=== PATIENT | female | born 1965 | race Caucasian/White ===

== ENCOUNTER 2018-10-22 10:39 | Emergency (ER) | payer BC, OTHER ==
[~2018-10-22] VITALS: Ht 167.6 cm; Wt 95.2 kg
[~2018-10-22 10:39] MED LIST: ALPR.25 PO; CARV25 PO; LISI20 PO; METPRE4DP PO; Norco 5-325 Ta1 EACH PO; PROG100 PO; Pantoprazole So40 MG PO; RANI150 PO; RXLORA1 PO; SERT100 PO; Ultram50 MG PO; Voltaren100 GM TOP
[2018-10-22] MEDS ORDERED: CARV25 PO (11:13)
[2018-10-22] MEDS ORDERED: ACID REDUCER 1150 MG PO (11:14)
[2018-10-22] MEDS ORDERED: PANT40 PO (11:14)
[2018-10-22] MEDS ORDERED: PROGESTERONE100 MG PO (11:14)
[2018-10-22] MEDS ORDERED: DICLOFONO2.5 GM TOP (11:15)
[2018-10-22] MEDS ORDERED: CHOL10002 PO (11:15)
[2018-10-22] MEDS ORDERED: LOSA50 PO (11:16)
[2018-10-22] MEDS ORDERED: XIIDRA1 EACH OP (11:16)
[2018-10-22] MEDS ORDERED: Norco 5-325 Ta1 EACH PO (11:54)
[2018-10-22] MEDS ORDERED: METPRE4DP PO (11:54)
== END 2018-10-22 12:39 | disposition home or self-care (01) ==
LOC: ER 10:39
DX: M53.3 Sacrococcygeal disorders, not elsewhere classified (principal); F32.9 Major depressive disorder, single episode, unspecified; Z88.0 Allergy status to penicillin; Z88.8 Allergy status to other drugs, medicaments and biological substances; Z88.5 Allergy status to narcotic agent; Z79.899 Other long term (current) drug therapy
CPT/HCPCS: 96372; 99283-25; J3010

== ENCOUNTER 2018-11-29 07:38 | Emergency (ER) | payer BC, OTHER ==
[~2018-11-29] VITALS: Ht 165.1 cm; Wt 95.2 kg
[~2018-11-29 07:38] MED LIST changes: +ACID REDUCER 1150 MG PO; +CHOL10002 PO; +DICLOFONO2.5 GM TOP; +LOSA50 PO; +PANT40 PO; +PROGESTERONE100 MG PO; +XIIDRA1 EACH OP
[2018-11-29 08:13] LABS: BASOPHILS ABSOLUTE AUTO 0.03 K/mm3 (0.00-0.23); BASOPHILS PERCENT AUTO 0 % (0-2); EOSINOPHILS ABSOLUTE AUTO 0.16 K/mm3 (0.00-0.68); EOSINOPHILS PERCENT AUTO 1 % (0-6); Hematocrit 39.2 % (33.0-51.0); Hemoglobin 12.6 g/dL (11.5-16.0); IMMATURE GRAN ABSOLUTE AUTO 0.04 K/mm3 (0.00-0.10); IMMATURE GRAN PERCENT AUTO 0 % (0-1); LYMPHOCYTES ABSOLUTE AUTO 4.09 K/mm3 (0.84-5.20); LYMPHOCYTES PERCENT AUTO 32 % (21-46); MONOCYTES ABSOLUTE AUTO 0.74 K/mm3 (0.16-1.47); MONOCYTES PERCENT AUTO 6 % (4-13); Mean Corpuscular HGB 28.4 pg (26.0-34.0); Mean Corpuscular HGB Conc 32.1 g/dL (31.5-36.5); Mean Corpuscular Volume 88 fL (80-100); Mean Platelet Volume 10.2 fL (9.1-12.4); NEUTROPHILS ABSOLUTE AUTO 7.92 K/mm3 (1.96-9.15); NEUTROPHILS PERCENT AUTO 61 % (41-73); Platelet Count 331 K/mm3 (150-400); RDW Coefficient Variation 13.6 % (11.7-14.2); RDW Standard Deviation 44.1 fL (35.1-46.3); Red Blood Cell Count 4.44 M/mm3 (3.80-5.20); White Blood Cell Count 12.98 K/mm3 (4.00-11.30)
[2018-11-29 08:39] LABS: Alanine Aminotransfer (ALT/SGP 23 U/L (12-78); Albumin, Blood 3.4 g/dL (3.4-5.0); Albumin/Globulin Ratio 0.9 (0.8-1.8); Alk Phos 78 U/L (50-136); Anion Gap 7 mmol/L (6-16); Aspartate Aminotrans (AST/SGOT 25 U/L (12-37); Blood Urea Nitrogen 17 mg/dL (8-24); Bun/Creatinine Ratio 21.8 (12.0-20.0); CO2, Blood 25 mmol/L (21-32); Calcium, Blood 8.9 mg/dL (8.5-10.1); Chloride, Blood 109 mmol/L (98-108); Creatinine, Blood 0.78 mg/dL (0.40-1.00); Globulin, Blood 3.8 g/dL (2.2-4.0); Glomerular Filtration Rate >60 (60-); Glucose, Blood 109 mg/dL (70-99); Potassium, Blood 4.8 mmol/L (3.5-5.5); Sodium, Blood 141 mmol/L (136-145); Total Protein, Blood 7.2 g/dL (6.4-8.2)
[2018-11-29 08:48] LABS: International Normalized Ratio 0.95; Prothrombin Time Results 10.1 Sec (9.7-11.5)
[2018-11-29] MEDS ORDERED: ESTR2 (18:37)
[2018-11-29] MEDS ORDERED: MELO7.5 PO (18:37)
== END 2018-11-29 22:12 | disposition short-term general hospital (02) ==
LOC: ER 07:38
PROVIDERS: Physician Assistant
DX: G93.89 Other specified disorders of brain (principal); F32.9 Major depressive disorder, single episode, unspecified; Z79.899 Other long term (current) drug therapy; Z87.891 Personal history of nicotine dependence
CPT/HCPCS: 36415; 70450; 70553; 71046; 80053; 82947; 85025; 85610; 85730; 93005; 93010; 96374; 96375; 96376; 99285-25; A9577; J1100; J2060

== ENCOUNTER → 2019-09-23 | Outpatient (CLI) | payer BC ==
[~2019-09-23] MED LIST changes: +ESTR2; +MELO7.5 PO
== END | disposition home or self-care (01) ==
LOC: LAB SHORT 11:46 → PLD 11:46
DX: D17.22 Benign lipomatous neoplasm of skin and subcutaneous tissue of left arm (principal)
CPT/HCPCS: 88305